=== PATIENT | female | born 2000 | race Caucasian/White ===

== ENCOUNTER 2022-11-01 06:20 | Emergency (ER) | payer BC ==
[~2022-11-01] VITALS: Ht 162.6 cm; Wt 59.0 kg
[2022-11-01 06:26] VITALS: BP_SYST 116
--- NOTE | 2022-11-01 06:35 | NUR ---
Pt received in ED with c/o palpitations & chest tightness which began at 2200 last night. Pt reports symptoms have worsened since waking up this morning in addition to feeling faint. Pt reports she takes spironolactone & control. Denies predisposing activity, stating it happened while she was resting. GCS 15.
--- NOTE | 2022-11-01 06:55 | NUR ---
at bedside with pt.
--- NOTE | 2022-11-01 07:12 | NUR ---
Lab at bedside with pt.
[2022-11-01 07:18] LABS: EOSINOPHILS # (AUTO) 0.2 K/uL (0.0-0.4); EOSINOPHILS % (AUTO) 4.8 % (0.0-4.0); HEMATOCRIT 39.4 % (36-48); HEMOGLOBIN 13.6 g/dL (12.0-16.0); LYMPHOCYTES # (AUTO) 1.5 K/uL (1.0-5.5); LYMPHOCYTES % (AUTO) 31.1 % (20.5-51.5); MEAN CORPUSCULAR HEMOGLOBIN 31 pg (27-31); MEAN CORPUSCULAR HGB CONC 35 % (32-36); MEAN CORPUSCULAR VOLUME 90 fL (79.0-98.0); MONOCYTES # (AUTO) 0.4 K/uL (0.0-1.0); MONOCYTES % (AUTO) 7.8 % (1.7-9.3); NEUTROPHILS # (AUTO) 2.7 K/uL (1.8-7.7); NEUTROPHILS % (AUTO) 55.3 % (40.0-70.0); PLATELET COUNT (AUTO) 216 K/uL (130-430); RED BLOOD CELL COUNT(AUTO) 4.39 MIL/uL (4.2-6.2); WHITE BLOOD COUNT (AUTO) 4.9 K/uL (4.8-10.8)
[2022-11-01] MEDS ORDERED: SPIR25TA PO (07:19)
[2022-11-01] MEDS ORDERED: birth control PO (07:21)
--- NOTE | 2022-11-01 07:21 | NUR ---
Medication reconciliation completed with information provided by patient. No prior medication reconsiliation available in chart.
--- NOTE | 2022-11-01 07:25 | NUR ---
Report given to MANOJ Alcantara - No questions at this time.
[2022-11-01 07:40] LABS: CALCIUM 9.1 mg/dL (8.4-11.0); CREATININE 0.79 mg/dL (0.55-1.30)
[2022-11-01 07:45] LABS: ALBUMIN 3.7 g/dL (3.4-4.8); TOTAL BILIRUBIN 0.3 mg/dL (0.0-1.0)
--- NOTE | 2022-11-01 07:45 | NUR ---
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 Denies SOB, Denies cardiac history. Pt is no acute distress, vital signs stable.
--- NOTE | 2022-11-01 08:34 | NUR ---
Patient given written and verbal discharge instructions and verbalizes understanding. ER MD discussed with patient the results and treatment provided. Patient in stable condition. ID arm band removed. Patient educated on pain management and to follow up with PMD. Opportunity for questions provided and answered. Medication side effect fact sheet provided.
[2022-11-01 08:53] VITALS: BP_SYST 113
== END 2022-11-01 08:34 | disposition home or self-care (01) ==
LOC: SED 06:20
DX: R00.2 Palpitations (principal); R07.9 Chest pain, unspecified; Z88.6 Allergy status to analgesic agent; Z79.899 Other long term (current) drug therapy
CPT/HCPCS: 36415; 80053; 84484; 85025; 99284